=== PATIENT | female | born 1995 | race Caucasian/White ===

== ENCOUNTER 2017-09-26 11:23 | Emergency (ER) | payer BC ==
[~2017-09-26] VITALS: Ht 170.2 cm; Wt 90.7 kg
[~2017-09-26 11:23] MED LIST: ARIP2TAB10 PO; BUSP5TAB59 PO; DEXM2.5T PO; NITR-65 PO; ONDA4TAB8 PO; SULF-222 PO
--- OUTSIDE RECORDS SUMMARY | 2017-09-26 11:27 | XMS REPORT | Continuity of Care Document ---
Author Author [facility] Organization [facility] Address Unknown Phone Unavailable Allergies Active Description Code Type Severity Reaction Onset Reported/Identified Relationship to Patient Clinical Status Yes No Known Drug Allergies [id number] Drug Allergy Unknown N/A 09/15/2014 Medications There is no data. Problems Date Dx Coded Attending Type Code Diagnosis Diagnosed By 09/15/2014 Ot 590.10 09/15/2014 Ot 789.09 11/02/2015 BART DOISABEL K Ot N39.0 URINARY TRACT INFECTION, SITE NOT SPECIF 11/02/2015 BART DO, ISABEL K Ot N91.2 AMENORRHEA, UNSPECIFIED 11/02/2015 BART DO, ISABEL K Ot R06.00 DYSPNEA, UNSPECIFIED 11/02/2015 BART DO, ISABEL K Ot R42 DIZZINESS AND GIDDINESS 11/04/2015 BART DO, ISABEL K Ot N39.0 11/04/2015 BART DO, ISABEL K Ot N91.2 11/04/2015 BART DO, ISABEL K Ot R06.00 11/04/2015 BART DO, ISABEL K Ot R42 Procedures There is no data. Results There is no data. Encounters ACCT No. Visit Date/Time Discharge Status Pt. Type Provider Facility Loc./Unit Complaint [id number] 11/02/2015 03:23:00 11/02/2015 04:53:00 DIS Emergency ISABEL ARRIAGA DO [facility] ER [id number] 09/26/2017 11:24:00 ACT Emergency CASTRO PRADO, JOSÉ Fitzgerald [facility] ER HEART PALPITATIONS [id number] 09/15/2014 11:51:00 Document Registration
--- NOTE | 2017-09-26 11:53 | ED Chest Pain ---
General Chief Complaint: Cardiac/General Problems Stated Complaint: HEART PALPITATIONS Nursing Triage Note: x1 hr ago, states mamoplasty on wednesday, taking tylenol 3 for pain. states was lying in bed when started. Nursing Sepsis Screen: No Definite Risk Source: patient, family Exam Limitations: no limitations History of Present Illness Date Seen by Provider: Sep 26, 2017 Time Seen by Provider: 11:49 Initial Comments This 22-year-old white female presents today's after having had mammoplasty with a history of palpitations while lying in bed. They patient is complaining of a tachycardia. She feels short of breath. Patient denies history of heart disease. She has had no trouble with blood clots in the past. The patient's postoperative pain medication has been Tylenol No. 3. Patient took this morning and it relieved her postoperative mammoplasty pain. Patient denies fever, productive cough, nausea, vomiting, or diarrhea. Patient states that she has significant anxiety for which she is medicated. Allergies and Home Medications Allergies Coded Allergies: No Known Drug Allergies (Unverified , 09/15/14) Home Medications Aripiprazole 2 Mg Tablet, Unknown Dose PO DAILY, (Reported) Buspirone Hcl 5 Mg Tab, Unknown Dose PO DAILY, (Reported) Dexmethylphenidate Hcl 2.5 Mg Tablet, Unknown Dose PO DAILY, (Reported) Nitrofurantoin Monohyd/M-Cryst 100 Mg Capsule, 100 MG PO BID Prescribed by: ISABEL ARRIAGA on 11/02/15 0445 Ondansetron 4 Mg/Udtablet Tab.rapdis, 4 MG PO Q4H PRN for NAUSEA/VOMITING Prescribed by: MYRNA ZIMMERMAN on 09/15/14 1306 Trimethoprim/Sulfamethoxazole 1 Ea Tablet, 1 EA PO BID Prescribed by: MYRNA ZIMMERMAN on 09/15/14 1306 Patient Home Medication List Home Medication List Reviewed: Yes Review of Systems Constitutional: see HPI, No chills, No fever EENTM: No Blurred Vision, No Ear Pain Respiratory: Denies Cough, Shortness of Air Cardiovascular: See HPI, Palpitations Gastrointestinal: Denies Abdominal Pain, Denies Diarrhea, Denies Vomiting Genitourinary: No Symptoms Reported Musculoskeletal: no symptoms reported Skin: No rash Psychiatric/Neurological: Anxiety Endocrine: No Symptoms Reported Hematologic/Lymphatic: No Symptoms Reported Past Brpdevh-Svripi-Aehasp Hx Patient Social History Recent Foreign Travel: No Contact w/Someone Who Travel: No Recent Infectious Disease Expo: No Seasonal Allergies Seasonal Allergies: No Surgeries Surgeries: Ear Surgery Reproductive System Hx Reproductive Disorders: Yes Sexually Transmitted Disease: No HIV/AIDS: No Female Reproductive Disorders: Menstrual Problems Musculoskeletal Musculoskeletal Disorders: Chronic Back Pain HEENT HEENT Disorders: Chronic Ear Infection Psychosocial Behavioral Health Disorders: ADD/ADHD, Anxiety, Depression Blood Transfusions Adverse Reaction to a Blood Tr: No Reviewed Nursing Assessment Reviewed/Agree w Nursing PMH: Yes Physical Exam Vital Signs Vital Signs - First Documented 09/26/17 11:35 Temp 97.9 Pulse 95 Resp 20 B/P (MAP) 138/92 (107) Pulse Ox 97 O2 Delivery Room Air Capillary Refill : NONE General Appearance: WD/WN, Mild Distress HEENT: Normal ENT Inspection Neck: Normal Inspection Respiratory: Lungs Clear, Normal Breath Sounds Cardiovascular: Regular Rate, Rhythm, No Murmur, Normal Peripheral Pulses Gastrointestinal: Normal Bowel Sounds, Non Tender, Soft Extremity: Normal Capillary Refill, Normal Inspection, Normal Range of Motion Neurologic/Psychiatric: No Motor/Sensory Deficits, Normal Mood/Affect Skin: Normal Color, Warm/Dry Progress/Results/Core Measures Results/Orders Lab Results Laboratory Tests Test 09/26/17 11:35 Range/Units White Blood Count 10.3 4.3-11.0 10^3/uL Red Blood Count 4.34 L 4.35-5.85 10^6/uL Hemoglobin 13.0 11.5-16.0 G/DL Hematocrit 38 35-52 % Mean Corpuscular Volume 87 80-99 FL Mean Corpuscular Hemoglobin 30 25-34 PG Mean Corpuscular Hemoglobin Concent 34 32-36 G/DL Red Cell Distribution Width 13.5 10.0-14.5 % Platelet Count 263 130-400 10^3/uL Mean Platelet Volume 10.8 H 7.4-10.4 FL Neutrophils (%) (Auto) 64 42-75 % Lymphocytes (%) (Auto) 27 12-44 % Monocytes (%) (Auto) 7 0-12 % Eosinophils (%) (Auto) 2 0-10 % Basophils (%) (Auto) 1 0-10 % Neutrophils # (Auto) 6.6 1.8-7.8 X 10^3 Lymphocytes # (Auto) 2.8 1.0-4.0 X 10^3 Monocytes # (Auto) 0.8 0.0-1.0 X 10^3 Eosinophils # (Auto) 0.2 0.0-0.3 10^3/uL Basophils # (Auto) 0.1 0.0-0.1 10^3/uL Sodium Level 139 135-145 MMOL/L Potassium Level 3.4 L 3.6-5.0 MMOL/L Chloride Level 106 98-107 MMOL/L Carbon Dioxide Level 22 21-32 MMOL/L Anion Gap 11 5-14 MMOL/L Blood Urea Nitrogen 10 7-18 MG/DL Creatinine 0.78 0.60-1.30 MG/DL Estimat Glomerular Filtration Rate > 60 BUN/Creatinine Ratio 13 Glucose Level 116 H 70-105 MG/DL Calcium Level 8.7 8.5-10.1 MG/DL Total Bilirubin 0.4 0.1-1.0 MG/DL Aspartate Amino Transf (AST/SGOT) 22 5-34 U/L Alanine Aminotransferase (ALT/SGPT) 48 0-55 U/L Alkaline Phosphatase 69 40-136 U/L Troponin I < 0.30 <0.30 NG/ML Total Protein 6.5 6.4-8.2 GM/DL Albumin 3.6 3.2-4.5 GM/DL My Orders Orders - JOSÉ ERAZO MD Ekg Tracing (09/26/17 11:43) Cbc With Automated Diff (09/26/17 11:45) Comprehensive Metabolic Panel (09/26/17 11:45) Troponin I (09/26/17 11:45) Chest Pa/Lat (2 View) (09/26/17 11:45) Ct Angio Chest W (09/26/17 11:45) Lorazepam Injection (Ativan Injection) (09/26/17 12:00) Iohexol Injection (Omnipaque 350 Mg/Ml 1 (09/26/17 12:00) Sodium Chloride Flush (Catheter Flush Sy (09/26/17 12:00) Ns (Ivpb) (Sodium Chloride 0.9%) (09/26/17 12:00) Pharmacy Communication (Pharmacy Communi (09/26/17 11:52) Medications Given in ED Current Medications Medications Dose Ordered Sig/Woody Route Start Time Stop Time Status Last Admin Dose Admin Iohexol 150 ml ONCE ONCE IV 09/26/17 12:00 09/26/17 12:01 DC 09/26/17 12:39 125 ML Sodium Chloride 10 ml NEEDED PRN IV 09/26/17 12:00 09/26/17 12:39 10 ML Sodium Chloride 250 ml ONCE ONCE IV 09/26/17 12:00 09/26/17 12:01 DC 09/26/17 12:39 80 ML Vital Signs/I&O Vital Sign - Last 12Hours 09/26/17 11:35 Temp 97.9 Pulse 95 Resp 20 B/P (MAP) 138/92 (107) Pulse Ox 97 O2 Delivery Room Air Blood Pressure Mean: 107 Progress Note : Time: 12:53 Progress Note The patient's laboratory evaluation was unremarkable. Patient's chest x-ray films reveal evidence of acute pathology. The patient's CT angio for PE was negative. Patient received a milligram of Ativan IV. The patient's resting tachycardia. Patient felt symptomatically improved. Patient was discharged with a few Ativan for the weekend. ECG Initial ECG Impression Date: Sep 26, 2017 Departure Impression Impression: Primary Impression: Palpitations Disposition: HOME, SELF-CARE Condition: Improved Departure-Patient Inst. Decision time for Depature: 12:55 Referrals: LONNIE RUFF MD (PCP/Family) Primary Care Physician Patient Instructions: Palpitations (DC) Add. Discharge Instructions: Ativan as needed. Close follow-up. Wednesday. Return if any problems or questions. All discharge instructions reviewed with patient and/or family. Voiced understanding. JOSÉ ERAZO MD Sep 26, 2017 11:53
[2017-09-26] MEDS: CATHETER FLUSH 10 ML SYR IV PRN ×2 (11:58→12:39)
[2017-09-26] MEDS ORDERED: NS 250 ML (IVPB) BAG IV ONE (12:00)
[2017-09-26] MEDS ORDERED: IOHEXOL 350 MG/ML 150 ML (OMNIPAQUE 350) VIAL IV ONE (12:00)
[2017-09-26] MEDS ORDERED: LORazepam INJ 2 MG/ML (ATIVAN) VIAL IVP ONE (12:00)
[2017-09-26 12:02] LABS: BASOPHILS # (AUTO) 0.1 10^3/uL (0.0-0.1); BASOPHILS % (AUTO) 1 % (0-10); EOSINOPHILS # (AUTO) 0.2 10^3/uL (0.0-0.3); EOSINOPHILS % (AUTO) 2 % (0-10); HEMATOCRIT 38 % (35-52); LYMPHOCYTES # (AUTO) 2.8 X 10^3 (1.0-4.0); LYMPHOCYTES % (AUTO) 27 % (12-44); MEAN CORPUSCULAR HEMOGLOBIN 30 PG (25-34); MEAN CORPUSCULAR HGB CONC 34 G/DL (32-36); MEAN CORPUSCULAR VOLUME 87 FL (80-99); MEAN PLATELET VOLUME 10.8 FL (7.4-10.4); MONOCYTES # (AUTO) 0.8 X 10^3 (0.0-1.0); MONOCYTES % (AUTO) 7 % (0-12); NEUTROPHILS # (AUTO) 6.6 X 10^3 (1.8-7.8); NEUTROPHILS % (AUTO) 64 % (42-75); PLATELET COUNT 263 10^3/uL (130-400); RED BLOOD COUNT 4.34 10^6/uL (4.35-5.85); RED CELL DISTRIBUTION WIDTH 13.5 % (10.0-14.5); WHITE BLOOD COUNT 10.3 10^3/uL (4.3-11.0)
[2017-09-26 12:21] LABS: ALANINE AMINOTRANSFERASE 48 U/L (0-55); ALBUMIN 3.6 GM/DL (3.2-4.5); ALKALINE PHOSPHATASE 69 U/L (40-136); BILIRUBIN,TOTAL 0.4 MG/DL (0.1-1.0); BUN/CREATININE RATIO 13; CALCIUM 8.7 MG/DL (8.5-10.1); CARBON DIOXIDE 22 MMOL/L (21-32); CHLORIDE 106 MMOL/L (98-107); CREATININE SERUM 0.78 MG/DL (0.60-1.30); GFR ESTIMATED > 60; GLUCOSE 116 MG/DL (70-105); POTASSIUM 3.4 MMOL/L (3.6-5.0); SODIUM 139 MMOL/L (135-145); TOTAL PROTEIN 6.5 GM/DL (6.4-8.2)
--- NOTE | 2017-09-26 12:35 | Diagnostic Imaging Report ---
INDICATION: Previous breast reduction 2 days ago. Tachycardia. FINDINGS: PA and lateral chest show the lungs to be well-aerated. There is no evidence of pneumothorax or pleural effusion. There are no infiltrates. The heart is not enlarged. There is no pulmonary edema or hilar adenopathy. No bony abnormality. Bilateral surgical drains are seen along the breast. IMPRESSION: Bilateral drainage tubes noted overlying the breast, otherwise negative PA and lateral chest. Dictated by: Dictated on workstation # [id number]
--- NOTE | 2017-09-26 12:43 | Diagnostic Imaging Report ---
PROCEDURE: CT angiography of the chest with contrast. TECHNIQUE: Multiple contiguous axial images were obtained through the chest after uneventful bolus administration of intravenous contrast. Reconstructed CTA MIP acquisitions were also performed. INDICATION: Post breast reduction. Shortness of breath. FINDINGS: There is suboptimal bolus timing limiting sensitivity of the exam. No filling defects are seen to suggest pulmonary emboli, however. Aorta appears normal. The lungs are well-aerated. There is no pneumothorax or pleural effusion. No mediastinal or hilar adenopathy of pathologic size. No pleural effusions or pericardial effusion. Surgical changes with drains noted in the breast bilaterally. IMPRESSION: 1. No evidence of pulmonary emboli. 2. No acute infiltrates. 3. Postsurgical changes of the breast. Dictated by: Dictated on workstation # [id number]
[2017-09-26 13:03] VITALS: BP 152/100
== END 2017-09-26 13:03 | disposition home or self-care (01) ==
LOC: EDUNIT# 11:23 → ER 11:24
DX: R00.2 Palpitations (principal); F90.9 Attention-deficit hyperactivity disorder, unspecified type; F41.9 Anxiety disorder, unspecified; F32.9 Major depressive disorder, single episode, unspecified
CPT/HCPCS: 36415; 71046; 71275; 80053; 84484; 85025